=== PATIENT | male | born 1965 | race Caucasian/White ===

== ENCOUNTER 2017-08-27 08:57 | Inpatient (IN) | payer OTHER ==
[2017-08-27] MEDS ORDERED: Lorazepam 2 MG/ML VIAL ONE (09:33)
[2017-08-27 11:45] LABS: #Eosinphils 0.1 thou/uL (0.0-0.7); #Lymphocytes 0.8 thou/uL (1.20-3.40); #Monocytes 0.5 thou/uL (0.11-0.59); #Neutrophils 4.9 thou/uL (1.40-6.50); %Basophils 0.7 % (0.0-1.0); %Eosinophils 0.9 % (0.0-10.0); %Lymphocytes 12.1 % (21.0-51.0); %Monocytes 7.7 % (0.0-10.0); %Neutrophils 78.7 % (42.0-75.0); Hypochromia MODERATE=16-30 cells (100X) (0-5/hpf); MDiff Complete? YES; Mean Corpuscular HGB CONC 29.1 g/dL (32.0-36.0); Mean Corpuscular Hemoglobin 18.3 pg (27.0-31.0); Mean Platelet Volume 4.8 fL (7.4-10.4); Microcytosis MODERATE=15-30 cells (100X) (0-5/hpf); Platelet Count 413 thou/uL (130-400); Poikilocytosis SLIGHT = 6-15 cells (100X) (0-5/hpf); Polychromasia SLIGHT = 2-3 cells (100X) (0-2/hpf); RBC Distribution Width 20.4 % (11.5-14.5); Red Blood Cell (RBC) Count 4.37 mill/uL (4.70-6.10); Reflex for Review?? YES; Target Cells MODERATE= 6-15 cells (100X) (0-1/hpf); White Blood Cell (WBC) Count 6.2 thou/uL (4.8-10.8)
[2017-08-27] MEDS ORDERED: Ondansetron ODT 4 MG TAB SL PRN (12:31)
[2017-08-27] MEDS ORDERED: Ondansetron HCl/PF 4 MG/2 ML Vial IVP PRN (12:31)
[2017-08-27] MEDS ORDERED: Potassium Chloride 40 MEQ in Sodium Chloride 0.9% 500 ML IVPB SCH (12:45)
[2017-08-27] MEDS ORDERED: Diazepam 5 MG TAB PO SCH (12:45)
[2017-08-27] MEDS ORDERED: Thiamine HCl 200 MG/2 ML VIAL IM SCH (12:45)
[2017-08-27 13:07] VITALS: BMI 23.6
[2017-08-27] MEDS: Sodium Chloride 0.9% 1,000 ML IV SCH ×2 (13:30→21:44)
[2017-08-27 13:40] LABS: Magnesium 1.6 mg/dL (1.6-2.6)
[2017-08-27 13:57] LABS: Ferritin 30.29 ng/mL (22-322)
[2017-08-27 13:59] LABS: HBCM Index 0.16 S/CO (0-0.79); HBSAg Index 0.15 S/CO (0-0.99); Hep A IgM AB Non-Reactive (NonReactive); Hep A IgM S/CO 0.16 S/CO (0-0.79); Hep B Surf Ag Non-Reactive S/CO (NonReactive); Hep C IgG Ab Non-Reactive (NonReactive); Hep C Index 0.12 S/CO (0-0.79); Hepatitis B Core IGM Abs Non-Reactive (NonReactive)
[2017-08-27 14:00] LABS: HIV (1/2) Antibody/Antigen Non-Reactive (NonReactive); HIV 1/2 INDEX 0.19 S/CO (<1.00)
[2017-08-27 14:12] LABS: Folate (Folic Acid) 17.3 ng/mL (7.0-31.4)
--- NOTE | 2017-08-27 14:58 | ULT ---
RIGHT UPPER QUADRANT ULTRASOUND: History: Right upper quadrant pain. FINDINGS: Gallbladder is unremarkable without focal stones. Common duct is 0.4 cm. Liver is diffusely thickened without focal mass or intrahepatic biliary dilatation. No free fluid is apparent. IMPRESSION: 1. No evidence of gallstones or biliary obstruction. 2. Hepatosteatosis. POS: [facility]
[2017-08-27] MEDS: Nicotine 14 MG PATCH TD SCH (15:35)
[2017-08-27] MEDS: Diazepam 5 MG TAB PO PRN ×3 (16:26→23:26)
--- NOTE | 2017-08-27 17:14 | CON ---
DATE OF CONSULTATION: 08/27/2017 Mr. Pham is a 52-year-old male. He used to drink several large glass of [place] a night. He changed to beer and was drinking 12 beers a day. He quit drinking on Monday. He was sent over for apparently melena from [facility]. He reported 4 days of black stool. He tells me the thing that is bothering him the most is he has been hallucinating for the last couple of days. He has never been hospitalized here before. PAST MEDICAL HISTORY: Remarkable for reflux disease, shoulder surgery, and appendectomy. SOCIAL HISTORY: Twelve beers a day up until Monday. He is a nonsmoker. He does not use drugs. ALLERGIES: He has no drug allergies. FAMILY HISTORY: Negative for lung disease at an early age. REVIEW OF SYSTEMS: 10 point system reviewed otherwise completely negative. PHYSICAL EXAMINATION: VITAL SIGNS: He is afebrile, heart rate is 97, respiratory rate is 23. Oximetry is 96 on room air, blood pressure 163/79, earlier 163/114. HEENT: Pupils are equal. Sclerae is anicteric. NECK: Supple, no lymphadenopathy. LUNGS: Clear. HEART: Regular rhythm. S1 and S2 are normal. ABDOMEN: Soft and nontender. EXTREMITIES: Without asymmetry. LABORATORY DATA: White count 6.2, hemoglobin 8.0, MCV is 413. Sodium 140, potassium 3.3, chloride 104, bicarbonate 24, BUN 24, creatinine 1.02, iron 16, TIBC is 438, AST is 113, ALT is 121, lipase 42. Urinalysis is just remarkable for trace ketones. Drug screen was negative. Hepatitis panel is negative. IMPRESSION: 1. Alcohol withdrawal induced encephalopathy. 2. History of extremely heavy [place] intake and then heavy beer intake after that. I have explained to him that AA is in necessity moving forward. He wanted to say that his was going to help him get through this, but I have explained to both her and him that going to some sort of support group is likely be more successful than depending on his to keep him from drinking. I suspect he has fatty liver and may have some early cirrhosis. He has documented melena while he is here. Gastroenterology needs to be involved. He obviously has severe iron deficiency within him. Mean corpuscular volume is 63. I would be betting that he also has coexistent thalassemia. He will remain in the critical care unit for now until he is stabilized. This is a 50-minute consult with at least 50% of the time spent on the unit coordinating care. ISAI
[2017-08-27] MEDS: Pantoprazole 40 MG VIAL IVP SCH (20:11)
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
[2017-08-28] MEDS ORDERED: Lorazepam 2 MG/ML VIAL SLOW IVP PRN (00:16)
[2017-08-28] MEDS: Lorazepam 2 MG/ML VIAL SLOW IVP PRN ×6 (02:09→17:46)
[2017-08-28] MEDS ORDERED: chlordiazePOXIDE HCl 25 MG CAP PO PRN ×2 (03:12→03:22)
[2017-08-28] MEDS ORDERED: Lorazepam 2 MG/ML VIAL SLOW IVP SCH (03:15)
[2017-08-28] MEDS ORDERED: Diazepam 5 MG TAB PO PRN (04:00)
[2017-08-28] MEDS: Sodium Chloride 0.9% 1,000 ML IV SCH ×3 (06:36→20:53)
--- NOTE | 2017-08-28 07:01 | PDOC.FM ---
- Subjective Subjective: Pt w/ increased agitation and confusion/hallucinations at approx 0130 this AM requiring PRN ativan administration. Pt doing well per nursing staff since episode. Has received total of 10 mg ativan overnight. Tolerating PO, no melanotic stools or episodes of hematemesis. Some agitation this AM. VSS w/ mild tachycardia. 6 days since last drink, day 3 of sxs. - Objective MAR Reviewed: Yes Vital Signs & Weight: Vital Signs (12 hours) Temp Pulse Resp Pulse Ox 08/28/17 04:00 97.6 F 08/27/17 20:00 97.5 F L 92 22 H 99 Weight Weight 76.2 kg Most Recent Monitor Data Heart Rate from ECG 90 NIBP 138/93 NIBP BP-Mean 110 Respiration from ECG 21 SpO2 91 I&O: 08/26/17 08/27/17 08/28/17 06:59 06:59 06:59 Intake Total 3781 Output Total 2675 Balance 1106 Result Diagrams: 08/27/17 20:25 08/28/17 06:47 <Mukesh Soares - Last Filed: 08/28/17 07:33> - Objective Vital Signs & Weight: Vital Signs (12 hours) Temp Pulse Resp Pulse Ox 08/28/17 08:00 98.5 F 110 H 18 100 08/28/17 07:00 98.5 F 08/28/17 04:00 97.6 F Weight Weight 76.2 kg Most Recent Monitor Data Heart Rate from ECG 84 NIBP 129/84 NIBP BP-Mean 105 Respiration from ECG 22 SpO2 97 I&O: 08/27/17 08/28/17 08/29/17 06:59 06:59 06:59 Intake Total 3781 Output Total 2675 875 Balance 1106 -875 Result Diagrams: 08/28/17 06:47 08/28/17 06:47 <Sarbjit Cruz - Last Filed: 08/28/17 11:38> Phys Exam - Physical Examination Agitated this AM, mumbling, confusion HEENT: PERRLA, moist MMs Respiratory: clear to auscultation bilateral Cardiovascular: no significant murmur tachycardic Gastrointestinal: soft, non-tender, no distention, positive bowel sounds Musculoskeletal: pulses present Neurological: moves all 4 limbs Deviation from normal: agitation, in soft restraints, confused <Mukesh Soares - Last Filed: 08/28/17 07:33> Dx/Plan (1) Alcohol withdrawal delirium Code(s): F10.231 - ALCOHOL DEPENDENCE WITH WITHDRAWAL DELIRIUM Status: Acute Plan: 6 days since last drink 3 days of withdrawal sxs - Will continue w/ scheduled librium (no evidence of advanced cirrhosis on imaging or alcoholic hepatitis which would be contraindications to this medication) and PRN ativan for pt's psychomotor agitation - Requiring 10 mg ativan overnight and Agitation again this AM receiving PRN librium 50 mg. Pending pt's response, will increase scheduled librium from 10 mg TID to either 25 mg or 50 mg TID if pt will agree to take PO meds. - Per nursing staff, pt has been refusing PO medications. Cont. w/ short acting IV ativan if pt continues to refuse - Cont. supplementation w/ B1 and B9 - Cont. to closely monitor in the ICU until sxs stabilize (2) Iron deficiency anemia Code(s): D50.9 - IRON DEFICIENCY ANEMIA, UNSPECIFIED Status: Acute Plan: Pt w/ microcytic anemia w/ low iron (16) and low-normal ferritin (30) Negative FOBT and no episodes of melena, hematochezia, or hematemeiss since admission Hgb stable at 8.0 Pt has been refusing PO medication and likely has malabsorption in the setting of significant and prolonged EtOH use Will plan for iron transfusion GI consult today for eval of possible EGD in the setting of melena and hematemesis (3) GERD (gastroesophageal reflux disease) Code(s): K21.9 - GASTRO-ESOPHAGEAL REFLUX DISEASE WITHOUT ESOPHAGITIS Status: Acute Plan: Pt w/ hx of GERD and w/ alarm sxs w/ microcytic anemia and endorsed hx of hematemesis and melena GI consult to eval for EGD Cont. w/ IV protonix <Mukesh Soares - Last Filed: 08/28/17 07:33>
[2017-08-28 07:24] LABS: ALT (SGPT) 155 U/L (8-55); AST (SGOT) 144 U/L (5-34); Alkaline Phosphatase 66 U/L (40-150); Anion Gap 11 mmol/L (10-20); BUN (Urea Nitrogen) 8 mg/dL (8.4-25.7); Bilirubin, Total 0.4 mg/dL (0.2-1.2); Calc. Creatinine Clearance 117 mL/min (70-130); Calcium 8.6 mg/dL (7.8-10.44); Carbon Dioxide 24 mmol/L (22-29); Chloride 107 mmol/L (98-107); Estimated GFR-MDRD Greater than 90; Glucose 102 mg/dL (70-105); Potassium 3.5 mmol/L (3.5-5.1); Sodium 138 mmol/L (136-145)
[2017-08-28] MEDS ORDERED: chlordiazePOXIDE HCl 25 MG CAP PO SCH (07:25)
[2017-08-28] MEDS: Pantoprazole 40 MG VIAL IVP SCH ×2 (08:36→20:52)
[2017-08-28 09:16] LABS: #Basophils 0.1 thou/uL (0.0-0.2); #Eosinphils 0.2 thou/uL (0.0-0.7); #Monocytes 0.7 thou/uL (0.11-0.59); #Neutrophils 2.8 thou/uL (1.40-6.50); %Basophils 1.4 % (0.0-1.0); %Eosinophils 4.5 % (0.0-10.0); %Lymphocytes 21.6 % (21.0-51.0); %Monocytes 14.9 % (0.0-10.0); %Neutrophils 57.7 % (42.0-75.0); Hemoglobin 8.3 g/dL (14.0-18.0); Hypochromia MODERATE=16-30 cells (100X) (0-5/hpf); MDiff Complete? YES; Mean Corpuscular HGB CONC 28.4 g/dL (32.0-36.0); Mean Corpuscular Hemoglobin 18.5 pg (27.0-31.0); Mean Platelet Volume 5.6 fL (7.4-10.4); Microcytosis MODERATE=15-30 cells (100X) (0-5/hpf); Platelet Count 401 thou/uL (130-400); RBC Distribution Width 20.6 % (11.5-14.5); Red Blood Cell (RBC) Count 4.49 mill/uL (4.70-6.10); White Blood Cell (WBC) Count 4.8 thou/uL (4.8-10.8)
[2017-08-28] MEDS: Haloperidol Lactate 5 MG/ML VIAL IM PRN (09:46)
[2017-08-28] MEDS: Magnesium Oxide 400 MG TAB PO SCH (09:53)
[2017-08-28] MEDS: Folic Acid 1 MG TAB PO SCH (09:53)
[2017-08-28] MEDS: Multivitamin W/ Minerals 1 TAB PO SCH (09:54)
--- NOTE | 2017-08-28 12:01 | PRG ---
DATE OF SERVICE: 08/28/2017 Carlin Pham required Ativan overnight to keep him from climbing out of bed. He is having obstructiv e apneas this morning. He will wake up and try to climb out of bed if he is stimulated in spite of A tivan. We placed a nasal trumpet in his nose. His obstructive apneas have been eliminated. He has equal br eath sounds. He is in no respiratory distress. PHYSICAL EXAMINATION: VITAL SIGNS: Blood pressure 129/84, heart rate in the 80s. Respiratory rate is in the 20s. ABDOMEN: Abdomen is soft and nontender. IMPRESSION AND PLAN: Encephalopathy secondary to alcohol withdrawal. He will need to remain in the Critical Care Unit at this time.
[2017-08-28] MEDS: Multivitamins, Adult 10 ML, Folic Acid 1 MG, Thiamine HCl 100 MG in Dextrose 5 %-0.45 %... IV SCH (12:05)
[2017-08-28] MEDS: Haloperidol Lactate 5 MG/ML VIAL IM SCH ×4 (13:02→23:55)
[2017-08-28] MEDS: Nicotine 14 MG PATCH TD SCH (15:53)
[2017-08-29] MEDS: Lorazepam 2 MG/ML VIAL SLOW IVP PRN ×6 (00:46→22:45)
[2017-08-29] MEDS: Haloperidol Lactate 5 MG/ML VIAL IM SCH ×6 (03:33→23:55)
[2017-08-29] MEDS: Sodium Chloride 0.9% 1,000 ML IV SCH ×3 (03:38→20:15)
[2017-08-29 04:40] LABS: ALT (SGPT) 170 U/L (8-55); AST (SGOT) 158 U/L (5-34); Albumin 3.8 g/dL (3.5-5.0); Alkaline Phosphatase 67 U/L (40-150); Anion Gap 11 mmol/L (10-20); BUN (Urea Nitrogen) 6 mg/dL (8.4-25.7); Bilirubin, Total 0.5 mg/dL (0.2-1.2); Calc. Creatinine Clearance 132 mL/min (70-130); Calcium 8.9 mg/dL (7.8-10.44); Carbon Dioxide 26 mmol/L (22-29); Chloride 104 mmol/L (98-107); Estimated GFR-MDRD Greater than 90; Globulin 2.5 g/dL (2.4-3.5); Glucose 91 mg/dL (70-105); Potassium 3.2 mmol/L (3.5-5.1); Protein, Total 6.3 g/dL (6.0-8.3); Sodium 138 mmol/L (136-145)
[2017-08-29] MEDS ORDERED: CCU Electrolyte Replacement 1 EACH FS ONE (05:54)
[2017-08-29] MEDS ORDERED: Potassium Chloride 20 MEQ TAB PO PRN (05:59)
[2017-08-29] MEDS ORDERED: Potassium Phosphate 9 MMOL in Sodium Chloride 0.9% 100 ML IVPB PRN (05:59)
[2017-08-29] MEDS ORDERED: CCU ELECTROLYTE REPLACEMENT PROTOCOL FS PRN (05:59)
[2017-08-29] MEDS ORDERED: Potassium Chloride 40 MEQ in Sodium Chloride 0.9% 250 ML 250 ML IVPB PRN (05:59)
[2017-08-29] MEDS ORDERED: Potassium Phosphate 12 MMOL in Sodium Chloride 0.9% 250 ML 250 ML IV PRN (05:59)
[2017-08-29] MEDS ORDERED: Magnesium Oxide 400 MG TAB PO PRN ×2 (05:59)
[2017-08-29] MEDS ORDERED: Magnesium 2 GM/NS 0.9% 100 ML 2 GM in Premix Bag 1 BAG IVPB PRN (05:59)
[2017-08-29] MEDS ORDERED: Potassium Phosphate 15 MMOL in Sodium Chloride 0.9% 250 ML 250 ML IV PRN (05:59)
[2017-08-29] MEDS ORDERED: Potassium Chloride 40 MEQ in Premix Bag 1 BAG IVPB PRN (05:59)
--- NOTE | 2017-08-29 06:50 | PDOC.FM ---
- Subjective Subjective: YARIEL overnight, doing well on scheduled haldol and PRN ativan per nursing staff. VSS, afebrile. - Objective MAR Reviewed: Yes Vital Signs & Weight: Vital Signs (12 hours) Temp Pulse Resp BP Pulse Ox 08/29/17 04:00 98.4 F 130/81 08/29/17 00:00 97.6 F 131/93 H 08/28/17 20:00 98.3 F 119/88 08/28/17 19:31 98.3 F 93 24 H 100 08/28/17 19:00 98.3 F Weight Weight 75.1 kg Most Recent Monitor Data Heart Rate from ECG 90 NIBP 137/91 NIBP BP-Mean 103 Respiration from ECG 18 SpO2 100 I&O: 08/27/17 08/28/17 08/29/17 06:59 06:59 06:59 Intake Total 3781 2844 Output Total 2675 2725 Balance 1106 119 Result Diagrams: 08/28/17 06:47 08/29/17 03:53 <Mukesh Soares - Last Filed: 08/29/17 06:47> - Objective Vital Signs & Weight: Vital Signs (12 hours) Temp Pulse Resp BP BP Pulse Ox 08/31/17 04:00 98.2 F 85 18 132/81 132/81 93 L Weight Weight 73.595 kg Most Recent Monitor Data Heart Rate from ECG 102 NIBP 124/83 NIBP BP-Mean 104 Respiration from ECG 19 SpO2 94 I&O: 08/30/17 08/31/17 09/01/17 06:59 06:59 06:59 Intake Total 4269 1400 Output Total 2715 1420 Balance 1554 -20 Result Diagrams: 08/31/17 05:04 08/31/17 05:04 <Sarbjit Cruz - Last Filed: 08/31/17 08:05> Phys Exam - Physical Examination Constitutional: NAD agitation w/ stimulation HEENT: PERRLA Neck: no nodes Respiratory: no wheezing, clear to auscultation bilateral Cardiovascular: RRR, no significant murmur Gastrointestinal: soft, non-tender Neurological: moves all 4 limbs Deviation from normal: Oriented to person and time. Tremulous and agitated when stimulated Skin: no rash <Mukesh Soares - Last Filed: 08/29/17 06:47> Dx/Plan (1) Alcohol withdrawal delirium Code(s): F10.231 - ALCOHOL DEPENDENCE WITH WITHDRAWAL DELIRIUM Status: Acute Plan: 7 days since last drink 4 days of withdrawal sxs - Will continue w/ ODILIA haldol and PRN ativan as this appears to better control patient's psychomotor agitation - Pt not eating, will consider transitioning fluids to D5 1/2 NS today - Cont. supplementation w/ B1 and B9 - Cont. to closely monitor in the ICU until sxs stabilize - If pt's sxs worsen on current regimen, will likely need to be stepped up to propofol and would subsequently require mechanical ventilation (2) Iron deficiency anemia Code(s): D50.9 - IRON DEFICIENCY ANEMIA, UNSPECIFIED Status: Acute Plan: Pt w/ microcytic anemia w/ low iron (16) and low-normal ferritin (30) Negative FOBT and no episodes of melena, hematochezia, or hematemeiss since admission Hgb stable GI consulted for further eval and possible EGD prior to eventual discharge to r/ o gastric ulcer/varicies Will start PO iron supplementation today (3) GERD (gastroesophageal reflux disease) Code(s): K21.9 - GASTRO-ESOPHAGEAL REFLUX DISEASE WITHOUT ESOPHAGITIS Status: Acute Plan: Pt w/ hx of GERD and w/ alarm sxs w/ microcytic anemia and endorsed hx of hematemesis and melena GI consult to eval for EGD Cont. w/ IV protonix <Mukesh Soares - Last Filed: 08/29/17 06:47> Attending Addendum - Attending Addendum Date/Time: 08/31/17 0804 I personally evaluated the patient and discussed the management with Dr. Soares I agree with the History, Examination, Assessment and Plan documented above with any addition or exceptions noted below. Patient responding to Haldol. <Sarbjit Cruz - Last Filed: 08/31/17 08:05>
[2017-08-29] MEDS: Ferrous Sulfate 325 MG TAB PO SCH ×2 (07:15→16:39)
[2017-08-29] MEDS: Pantoprazole 40 MG VIAL IVP SCH ×2 (08:04→20:14)
[2017-08-29] MEDS: Multivitamin W/ Minerals 1 TAB PO SCH (08:04)
[2017-08-29] MEDS: Magnesium Oxide 400 MG TAB PO SCH (08:04)
[2017-08-29] MEDS: Folic Acid 1 MG TAB PO SCH (08:04)
--- NOTE | 2017-08-29 08:08 | CON ---
DATE OF CONSULTATION: 08/28/2017 REFERRING PHYSICIAN: Dr. Mirella Mathew/Dr. Tyree Cat. REASON FOR CONSULTATION: Anemia with questionable history of melena. HISTORY OF PRESENT ILLNESS: Mr. Carlin Pham is a 52-year-old male with history of chronic alcohol abuse. He drinks as much as 4 beers per day. Apparently, he has bleeding for the last 4 da ys. He was brought to the hospital by the family because of feeling lightheaded and also cramping ov er both lower extremities. He also was having some syncopal episodes and having auditory and visual hallucination. The patient was hospitalized because of the above reasons. Since admission, he devel oped christy DTs and right now he is on under sedation and also under physical restraint. He is very s leepy and drowsy. Most of the history was obtained by reviewing his admitting history and physical b y Dr. Vu. The patient was found to have anemia. However, the anemia is actually microcytic indic ative of chronic blood loss. His MCV was low around 63. Apparently, the patient gives any history o f melena stool and also history of hematemesis couple of weeks ago as per the . Since admission , the patient has had no nausea, vomiting, and there is no history of any melena stools. In fact, he has normal stool. The CBC shows hemoglobin 8.1, hematocrit 30. His MCV is low at 63 indicative of chronic blood loss. No other relevant history. MEDICAL ILLNESSES: 1. Chronic alcohol abuse. 2. Asthma. 3. Chronic acid reflux. SURGERIES: 1. Appendectomy. 2. Bilateral rotator cuff repair. ALLERGIES: None. SOCIAL HISTORY: Patient chews tobacco and alcohol abuse for many years. No history of drug abuse. REVIEW OF SYSTEMS: Unobtainable as he is heavily sedated. PHYSICAL EXAMINATION: GENERAL: Thin built. VITAL SIGNS: Stable. Pulse is around 110, blood pressure is 150/96. NECK: Supple. CARDIOVASCULAR: First and second heart sounds normal. LUNGS: Clear to auscultation. ABDOMEN: Nontender. No organomegaly or masses. EXTREMITIES: No edema. LABORATORY DATA: CBC, hemoglobin 8.1, hematocrit 30, platelet count 393,000. BMP: Sodium 140, pota ssium 3.3, chloride 104, bicarb 24, CO2 is 24, glucose 93, AST, ALT 111 and 120 respectively, alkali ne phosphatase 64, calcium 9.8, protein 7.9, albumin 4.5, bilirubin 0.6, PTT 30.4. CLINICAL IMPRESSION: A 52-year-old male with history of chronic alcohol abuse, hospitalize d with dizziness and also hallucinations. Patient appears to have christy delirium tremens at the pres ent time. There is no bleeding at least from the hospital in the form of melena or hematemesis or he matochezia. The anemia is actually microcytic indicative of chronic blood loss and acute blood loss. RECOMMENDATIONS: 1. Management of DTs, IV fluids, magnesium, folic acid, thiamine, and Ativan. 2. Follow up H&H. 3. We will plan for EGD when he is clinically stable. However, if he starts having christy bleeding m ay have to change the treatment plan and will proceed on an emergent basis. For the time being, I saad valdez recommend follow up H&H and transfuse p.r.n. and symptomatically treat.
[2017-08-29] MEDS: Multivitamins, Adult 10 ML, Folic Acid 1 MG, Thiamine HCl 100 MG in Dextrose 5 %-0.45 %... IV SCH (12:04)
--- NOTE | 2017-08-29 12:52 | PRG ---
DATE OF SERVICE: 08/29/2017 SUBJECTIVE: He was actually more conversant today. OBJECTIVE: VITAL SIGNS: Heart rate is 90. Blood pressure 140/84, respiratory rate 21, oximetry 94. LUNGS: Remarkable for coarse equal breath sounds. HEART: Regular rhythm. S1 and S2 are normal. ABDOMEN: Soft and nontender. EXTREMITIES: Without clubbing, cyanosis, or edema. LABORATORY DATA: Sodium 130, potassium 3.2, chloride 104, bicarbonate 26, BUN 6, creatinine 0.7. Li freddy enzymes as expected, it is still mildly elevated. IMPRESSION: Alcohol withdrawal with encephalopathy associated with that, not is hyper-autonomic at t his time. Other than being confused, he is stable at least at this point in time. Fortunately, he d id not require intubation yesterday. His nasal trumpet is out. We will continue close observation in the Critical Care Unit. Critical care time was 30 minutes.
--- NOTE | 2017-08-29 12:56 | ADD-PRG ---
DATE OF SERVICE: 08/29/2017 This is an addendum to the note of Dr. Jin Soares. SUBJECTIVE: Mr. Pham is currently resting quietly in no distress. OBJECTIVE: VITAL SIGNS: Currently, blood pressure is 150/90, he is afebrile, pulse rate is 90 and regular, resp irations are 20. We are treating him for delirium tremens and he is currently quite sedate. He also has a profound ir on-deficiency anemia and we will be consulting GI for evaluation. In the event, he is currently clin ically stable.
--- NOTE | 2017-08-29 13:38 | PRG ---
DATE OF SERVICE: 08/29/2017 HISTORY OF PRESENT ILLNESS: This is a 52-year-old male with alcohol abuse who presents wit h alcohol withdrawal. The patient is being sedated with Haldol. The patient has had no overt GI ble eding. Blood count is actually stable. No further drop noted. The admitting hemoglobin was 8.0, he matocrit 27.6. Today is the same thing as before. The WBC 4800, hemoglobin 8.3, hematocrit 29.2, MC V 65, indicative of iron deficiency. His chemistry panel shows sodium 138, potassium 3.2, chloride 1 04, bicarb 26, BUN is 6, creatinine 0.70. Liver function tests are elevated, bilirubin 0.5, AST 15 8, ALT 170, alkaline phosphatase 67, vitamin B12 975. PHYSICAL EXAMINATION: VITAL SIGNS: He is afebrile. His pulse 92, blood pressure is 124/100. CARDIOVASCULAR/LUNGS: Within normal limits. ABDOMEN: Soft to palpate. No organomegaly. Bowel sounds positive. IMPRESSION: 1. Alcohol withdrawal, DTs 2. Anemia, microcytic, no evidence of acute gastrointestinal bleeding. PLAN: Once he recovers from the DTs will plan for EGD and colonoscopy prior to discharge. In the [facility] and the [facility], continue supportive care and alcohol withdrawal care.
[2017-08-29] MEDS: Haloperidol Lactate 5 MG/ML VIAL IM PRN (13:50)
[2017-08-29] MEDS: Nicotine 14 MG PATCH TD SCH (16:26)
[2017-08-30] MEDS: Haloperidol 5 MG TAB PO SCH ×2 (04:54→08:53)
[2017-08-30 05:14] LABS: #Basophils 0.1 thou/uL (0.0-0.2); #Eosinphils 0.3 thou/uL (0.0-0.7); #Lymphocytes 0.6 thou/uL (1.20-3.40); #Monocytes 0.6 thou/uL (0.11-0.59); #Neutrophils 4.2 thou/uL (1.40-6.50); %Basophils 0.9 % (0.0-1.0); %Eosinophils 5.4 % (0.0-10.0); %Monocytes 10.3 % (0.0-10.0); %Neutrophils 72.4 % (42.0-75.0); Hemoglobin 7.8 g/dL (14.0-18.0); Mean Corpuscular HGB CONC 28.6 g/dL (32.0-36.0); Mean Corpuscular Hemoglobin 18.7 pg (27.0-31.0); Mean Corpuscular Volume 65.1 fl (80.0-94.0); Mean Platelet Volume 11.3 fL (7.4-10.4); Platelet Count 419 thou/uL (130-400); RBC Distribution Width 20.2 % (11.5-14.5); Red Blood Cell (RBC) Count 4.18 mill/uL (4.70-6.10); White Blood Cell (WBC) Count 5.8 thou/uL (4.8-10.8)
[2017-08-30] MEDS: Sodium Chloride 0.9% 1,000 ML IV SCH (05:23)
[2017-08-30 05:27] LABS: ALT (SGPT) 152 U/L (8-55); AST (SGOT) 131 U/L (5-34); Albumin 3.7 g/dL (3.5-5.0); Alkaline Phosphatase 73 U/L (40-150); Anion Gap 11 mmol/L (10-20); BUN (Urea Nitrogen) 5 mg/dL (8.4-25.7); Bilirubin, Total 0.4 mg/dL (0.2-1.2); Calc. Creatinine Clearance 123 mL/min (70-130); Calcium 9.1 mg/dL (7.8-10.44); Carbon Dioxide 28 mmol/L (22-29); Chloride 105 mmol/L (98-107); Estimated GFR-MDRD Greater than 90; Globulin 2.7 g/dL (2.4-3.5); Glucose 96 mg/dL (70-105); Potassium 3.6 mmol/L (3.5-5.1); Protein, Total 6.4 g/dL (6.0-8.3); Sodium 140 mmol/L (136-145)
[2017-08-30] MEDS: Ferrous Sulfate 325 MG TAB PO SCH ×2 (07:50→16:35)
[2017-08-30] MEDS: Folic Acid 1 MG TAB PO SCH (08:52)
[2017-08-30] MEDS: Magnesium Oxide 400 MG TAB PO SCH (08:53)
[2017-08-30] MEDS: Multivitamin W/ Minerals 1 TAB PO SCH (08:53)
[2017-08-30] MEDS: Pantoprazole 40 MG VIAL IVP SCH (08:53)
--- NOTE | 2017-08-30 08:54 | PDOC.FM ---
- Subjective Subjective: YARIEL overnight, pt out of restraints this AM. Minimal sxs of withdrawal overnight on now ODILIA PO haldol. Required 8 mg PRN ativan in total yesterday w/ 2 mg used overnight. Pt resting comfortably this AM. Answering questions appropriately. VSS, afebrile. - Objective MAR Reviewed: Yes Vital Signs & Weight: Vital Signs (12 hours) Temp Pulse Resp BP Pulse Ox 08/30/17 07:11 98.0 F 80 18 97 08/30/17 04:00 98.0 F 08/30/17 00:00 98.0 F 119/72 08/29/17 21:00 97.8 F Weight Weight 77 kg Most Recent Monitor Data Heart Rate from ECG 80 NIBP 134/87 NIBP BP-Mean 101 Respiration from ECG 17 SpO2 98 I&O: 08/29/17 08/30/17 08/31/17 06:59 06:59 06:59 Intake Total 2844 4269 Output Total 2725 2715 Balance 119 1554 Result Diagrams: 08/30/17 04:25 08/30/17 04:25 Phys Exam - Physical Examination Constitutional: NAD HEENT: PERRLA, moist MMs Respiratory: no wheezing Cardiovascular: RRR, no significant murmur Gastrointestinal: soft, non-tender Musculoskeletal: pulses present Neurological: moves all 4 limbs Psychiatric: normal affect Dx/Plan (1) Alcohol withdrawal delirium Code(s): F10.231 - ALCOHOL DEPENDENCE WITH WITHDRAWAL DELIRIUM Status: Acute Plan: 8 days since last drink 5 days of withdrawal sxs - Will transition to librium taper w/ PRN PO haldol needed for breathrough sxs as he has responded well to this. Will start with 50 mg TID. - Consider transfer to floor if pt remains stable w/ minimal withdrawal sxs - Cont. supplementation w/ B1 and B9 - CM consulted for aid in alcohol cessation programs/information in the community (2) Iron deficiency anemia Code(s): D50.9 - IRON DEFICIENCY ANEMIA, UNSPECIFIED Status: Acute Plan: Pt w/ microcytic anemia w/ low iron (16) and low-normal ferritin (30) Negative FOBT and no episodes of melena, hematochezia, or hematemeiss since admission Hgb stable Pt to have scope performed prior to d/c (3) GERD (gastroesophageal reflux disease) Code(s): K21.9 - GASTRO-ESOPHAGEAL REFLUX DISEASE WITHOUT ESOPHAGITIS Status: Acute Plan: Pt w/ hx of GERD and w/ alarm sxs w/ microcytic anemia and endorsed hx of hematemesis and melena GI consulted w/ plans for scope prior to d/c home
[2017-08-30] MEDS ORDERED: chlordiazePOXIDE HCl 25 MG CAP PO PRN (10:52)
--- NOTE | 2017-08-30 13:35 | ADD-PRG ---
DATE OF SERVICE: 08/30/2017 This is an addendum to the note of Dr. Jin Soares. Mr. Pham is awake and alert this morning. He is extremely pleasant and in no distress. He is rabia wing no evidence of tremulousness, anxiety or agitation. His vital signs are stable. He will be tra nsferred to the regular floor today. We have again emphasized that he seek help with AA for his youth development specialist kurt alcoholism. Clinically, able to transfer to floor.
--- NOTE | 2017-08-30 14:27 | PRG ---
DATE OF SERVICE: 08/30/2017 SUBJECTIVE: The patient has improved dramatically. He is coherent and cooperative today. PHYSICAL EXAMINATION: VITAL SIGNS: He is afebrile, heart rate 87, respiratory rate 16, oximetry is 95% on room air, blood pressure 155/95. LUNGS: Clear. HEART: Regular rhythm. ABDOMEN: Soft. LABORATORY DATA: White count 5.8, hemoglobin 7.8, platelets 119, MCV 65. Sodium 140, potassium 3.6, chloride 105, bicarbonate 28, BUN 5, creatinine 0.7. IMPRESSION: 1. Alcohol withdrawal, stable. 2. 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 3. History of extremely heavy alcohol intake. 4. Elevated liver enzymes secondary to his alcoholism. 5. Protein calorie malnutrition and deconditioning secondary to inactivity and alcoholism. PLAN: Transfer out of the Critical Care Unit. He will need an outpatient workup of his anemia to in clude upper and lower endoscopy at some point. Hopefully he will enroll in in Alcoholics Anonymous a nd participate. I will sign off since he is transferring out of the Critical Care Unit.
[2017-08-30] MEDS: Nicotine 14 MG PATCH TD SCH (16:35)
--- NOTE | 2017-08-30 22:13 | PRG ---
DATE OF SERVICE: 08/30/2017 HOSPITAL VISIT NOTE HISTORY OF PRESENT ILLNESS: This is a 52-year-old male hospitalized with DTs and alcohol w ithdrawal. He was in ICU until today. He came out of ICU today. He is awake, alert, and communicat mary. He says he used to see Dr. Sanchez before and had not seen him in the last 1 year. He had no prior history of any peptic ulcer. No history of GI bleeding in the past. No anemia from befo re. The patient still appears weak. However, he is awake and does communicate to some extent. PHYSICAL EXAMINATION: VITAL SIGNS: Temperature 98 degrees Fahrenheit, pulse is 87, blood pressure 155/95. CARDIOVASCULAR SYSTEM: Lungs within normal limits. ABDOMEN: Soft. No organomegaly. No tenderness. No masses. LABORATORY: From today's CBC; WBC had not much changed, today is 7.8; hematocrit 24.2, MCV 63.1. RECOMMENDATIONS: 1. Follow up hemoglobin and hematocrit. 2. Transfuse p.r.n. 3. When he is stable, we will plan for an EGD and colonoscopy.
[2017-08-31 05:57] LABS: #Eosinphils 0.3 thou/uL (0.0-0.7); #Monocytes 0.6 thou/uL (0.11-0.59); #Neutrophils 2.6 thou/uL (1.40-6.50); %Basophils 0.6 % (0.0-1.0); %Eosinophils 5.9 % (0.0-10.0); %Lymphocytes 22.4 % (21.0-51.0); %Monocytes 13.6 % (0.0-10.0); %Neutrophils 57.4 % (42.0-75.0); Hemoglobin 7.9 g/dL (14.0-18.0); Mean Corpuscular HGB CONC 28.8 g/dL (32.0-36.0); Mean Corpuscular Hemoglobin 18.7 pg (27.0-31.0); Mean Corpuscular Volume 64.8 fl (80.0-94.0); Mean Platelet Volume 5.5 fL (7.4-10.4); Platelet Count 460 thou/uL (130-400); RBC Distribution Width 20.2 % (11.5-14.5); Red Blood Cell (RBC) Count 4.22 mill/uL (4.70-6.10); White Blood Cell (WBC) Count 4.6 thou/uL (4.8-10.8)
[2017-08-31 06:01] LABS: ALT (SGPT) 110 U/L (8-55); AST (SGOT) 74 U/L (5-34); Albumin 3.7 g/dL (3.5-5.0); Alkaline Phosphatase 79 U/L (40-150); Anion Gap 8 mmol/L (10-20); BUN (Urea Nitrogen) 7 mg/dL (8.4-25.7); Bilirubin, Total 0.3 mg/dL (0.2-1.2); Calc. Creatinine Clearance 114 mL/min (70-130); Calcium 9.2 mg/dL (7.8-10.44); Carbon Dioxide 32 mmol/L (22-29); Chloride 107 mmol/L (98-107); Estimated GFR-MDRD Greater than 90; Globulin 2.8 g/dL (2.4-3.5); Glucose 99 mg/dL (70-105); Potassium 3.3 mmol/L (3.5-5.1); Protein, Total 6.5 g/dL (6.0-8.3); Sodium 144 mmol/L (136-145)
--- NOTE | 2017-08-31 08:29 | PDOC.FM ---
- Subjective Subjective: YARIEL overnight, tolerating PO, denies any continued withdrawal sxs. Did not require any PRN librium overnight. No new complaints this AM. Pt states he will be planning to get a private counselor upon discharge to aid him in his continued EtOH cessation. - Objective MAR Reviewed: Yes Vital Signs & Weight: Vital Signs (12 hours) Temp Pulse Resp BP BP Pulse Ox 08/31/17 04:00 98.2 F 85 18 132/81 132/81 93 L Weight Weight 73.595 kg Most Recent Monitor Data Heart Rate from ECG 102 NIBP 124/83 NIBP BP-Mean 104 Respiration from ECG 19 SpO2 94 I&O: 08/30/17 08/31/17 09/01/17 06:59 06:59 06:59 Intake Total 4269 1400 Output Total 2715 1420 Balance 1554 -20 Result Diagrams: 08/31/17 05:04 08/31/17 05:04 <Mukesh Soares - Last Filed: 08/31/17 08:27> - Objective Vital Signs & Weight: Vital Signs (12 hours) Temp Pulse Resp BP BP Pulse Ox 08/31/17 08:00 98.4 F 109 H 18 144/79 H 144/79 H 93 L 08/31/17 04:00 98.2 F 85 18 132/81 132/81 93 L Weight Weight 73.595 kg Most Recent Monitor Data Heart Rate from ECG 102 NIBP 124/83 NIBP BP-Mean 104 Respiration from ECG 19 SpO2 94 I&O: 08/30/17 08/31/17 09/01/17 06:59 06:59 06:59 Intake Total 4269 1400 Output Total 2715 1420 Balance 1554 -20 Result Diagrams: 08/31/17 05:04 08/31/17 05:04 <Sarbjit Cruz - Last Filed: 08/31/17 11:20> Phys Exam - Physical Examination Constitutional: NAD HEENT: PERRLA, moist MMs Neck: no nodes, no JVD Respiratory: no wheezing, clear to auscultation bilateral Cardiovascular: RRR Gastrointestinal: soft, non-tender Musculoskeletal: no edema, pulses present Psychiatric: normal affect, A&O x 3 <Mukesh Soares - Last Filed: 08/31/17 08:27> Dx/Plan (1) Alcohol withdrawal delirium Code(s): F10.231 - ALCOHOL DEPENDENCE WITH WITHDRAWAL DELIRIUM Status: Resolved Plan: 9 days since last drink - Cont. w/ PRN librium for any withdrawal sxs. Has not required any since yesterday AM. - CM consulted for EtOH cessation information/resources - Cont. supplementation w/ B1 and B9 (2) Iron deficiency anemia Code(s): D50.9 - IRON DEFICIENCY ANEMIA, UNSPECIFIED Status: Acute Plan: Pt w/ microcytic anemia w/ low iron (16) and low-normal ferritin (30) Negative FOBT and no episodes of melena, hematochezia, or hematemeiss since admission Hgb stable Pt to have scope performed prior to d/c (3) GERD (gastroesophageal reflux disease) Code(s): K21.9 - GASTRO-ESOPHAGEAL REFLUX DISEASE WITHOUT ESOPHAGITIS Status: Acute Plan: Pt w/ hx of GERD and w/ alarm sxs w/ microcytic anemia and endorsed hx of hematemesis and melena GI consulted w/ plans for scope prior to d/c home <Mukesh Soares - Last Filed: 08/31/17 08:27> Attending Addendum - Attending Addendum Date/Time: 08/31/17 1119 I personally evaluated the patient and discussed the management with Dr. Soares I agree with the History, Examination, Assessment and Plan documented above with any addition or exceptions noted below. Patient for GI evaluation of Anemia, candid discussion with Patient and spouse regard Alcohol rehab avoiding enabling behavior and outpatient follow up counseling. <Sarbjit Cruz - Last Filed: 08/31/17 11:20>
[2017-08-31] MEDS ORDERED: Potassium Chloride 20 MEQ TAB PO SCH (08:30)
[2017-08-31] MEDS ORDERED: Amlodipine 5 MG TAB PO SCH (09:00)
[2017-08-31] MEDS: Multivitamin W/ Minerals 1 TAB PO SCH (09:45)
[2017-08-31] MEDS: Ferrous Sulfate 325 MG TAB PO SCH ×2 (09:45→17:42)
[2017-08-31] MEDS: Folic Acid 1 MG TAB PO SCH (09:45)
[2017-08-31] MEDS ORDERED: GoLYTELY 4,000 ml Bottle PO SCH (17:00)
[2017-08-31] MEDS: Nicotine 14 MG PATCH TD SCH (17:42)
[2017-08-31] MEDS: Docusate 100 MG CAP PO SCH (19:50)
[2017-09-01 05:26] LABS: ALT (SGPT) 100 U/L (8-55); AST (SGOT) 73 U/L (5-34); Albumin 3.8 g/dL (3.5-5.0); Alkaline Phosphatase 83 U/L (40-150); Anion Gap 9 mmol/L (10-20); BUN (Urea Nitrogen) 10 mg/dL (8.4-25.7); Bilirubin, Total 0.4 mg/dL (0.2-1.2); Calc. Creatinine Clearance 111 mL/min (70-130); Calcium 9.4 mg/dL (7.8-10.44); Carbon Dioxide 32 mmol/L (22-29); Chloride 104 mmol/L (98-107); Estimated GFR-MDRD Greater than 90; Globulin 2.9 g/dL (2.4-3.5); Glucose 90 mg/dL (70-105); Potassium 3.3 mmol/L (3.5-5.1); Protein, Total 6.7 g/dL (6.0-8.3); Sodium 142 mmol/L (136-145)
[2017-09-01 05:27] LABS: #Basophils 0.1 thou/uL (0.0-0.2); #Eosinphils 0.3 thou/uL (0.0-0.7); #Lymphocytes 1.3 thou/uL (1.20-3.40); #Monocytes 0.7 thou/uL (0.11-0.59); #Neutrophils 2.7 thou/uL (1.40-6.50); %Basophils 1.8 % (0.0-1.0); %Eosinophils 5.8 % (0.0-10.0); %Lymphocytes 25.6 % (21.0-51.0); %Monocytes 13.5 % (0.0-10.0); %Neutrophils 53.3 % (42.0-75.0); Mean Corpuscular HGB CONC 28.6 g/dL (32.0-36.0); Mean Corpuscular Hemoglobin 18.5 pg (27.0-31.0); Mean Corpuscular Volume 64.6 fl (80.0-94.0); Mean Platelet Volume 5.3 fL (7.4-10.4); Platelet Count 481 thou/uL (130-400); Red Blood Cell (RBC) Count 4.33 mill/uL (4.70-6.10)
[2017-09-01] MEDS ORDERED: Iopamidol 370 76% 50 ML VIAL FS ONE (07:04)
[2017-09-01] MEDS ORDERED: ISOVUE-370 76%-LOCM 1 ML ONE (07:04)
--- NOTE | 2017-09-01 09:26 | PDOC.FM ---
- Subjective Subjective: YARIEL overnight, VSS, afebrile. Seen by case management and given community resources for both private inpatient/outpatient alcohol rehab and free resources. No PRN librium use overnight. Going for EGD/colonscopy this AM - Objective MAR Reviewed: Yes Vital Signs & Weight: Vital Signs (12 hours) Temp Pulse Resp BP BP BP Pulse Ox 09/01/17 07:52 98.2 F 79 16 96 09/01/17 07:35 98.2 F 79 16 143/87 H 96 09/01/17 04:00 98.5 F 83 16 130/85 130/85 95 09/01/17 00:00 98.4 F 84 16 144/90 H 144/90 H 95 Weight Weight 74 kg Most Recent Monitor Data Heart Rate from ECG 102 NIBP 124/83 NIBP BP-Mean 104 Respiration from ECG 19 SpO2 94 I&O: 08/31/17 09/01/17 09/02/17 06:59 06:59 06:59 Intake Total 1400 2220 Output Total 1420 Balance -20 2220 Result Diagrams: 09/01/17 04:27 09/01/17 04:27 <Mukesh Soares K - Last Filed: 09/01/17 09:24> - Objective Vital Signs & Weight: Vital Signs (12 hours) Temp Pulse Resp BP BP BP BP 09/01/17 10:50 98.6 F 79 14 155/110 H 09/01/17 07:52 98.2 F 79 16 09/01/17 07:35 98.2 F 79 16 143/87 H 09/01/17 04:00 98.5 F 83 16 130/85 130/85 09/01/17 00:00 98.4 F 84 16 144/90 H 144/90 H Pulse Ox 09/01/17 10:50 96 09/01/17 07:52 96 09/01/17 07:35 96 09/01/17 04:00 95 09/01/17 00:00 95 Weight Weight 74 kg Most Recent Monitor Data Heart Rate from ECG 102 NIBP 124/83 NIBP BP-Mean 104 Respiration from ECG 19 SpO2 94 I&O: 08/31/17 09/01/17 09/02/17 06:59 06:59 06:59 Intake Total 1400 2220 Output Total 1420 Balance -20 2220 Result Diagrams: 09/01/17 04:27 09/01/17 04:27 <Sarbjit Cruz - Last Filed: 09/01/17 11:55> Phys Exam - Physical Examination Constitutional: NAD HEENT: PERRLA Respiratory: no wheezing, clear to auscultation bilateral Cardiovascular: RRR, no significant murmur Gastrointestinal: soft, non-tender Musculoskeletal: no edema, pulses present Neurological: moves all 4 limbs Psychiatric: normal affect, A&O x 3 Skin: cap refill <2 seconds <Mukesh Soares - Last Filed: 09/01/17 09:24> Dx/Plan (1) Alcohol withdrawal delirium Code(s): F10.231 - ALCOHOL DEPENDENCE WITH WITHDRAWAL DELIRIUM Status: Resolved Plan: Resolved, resources for rehab given to patient (2) Iron deficiency anemia Code(s): D50.9 - IRON DEFICIENCY ANEMIA, UNSPECIFIED Status: Acute Plan: Pt w/ microcytic anemia w/ low iron (16) and low-normal ferritin (30) Negative FOBT and no episodes of melena, hematochezia, or hematemeiss since admission Hgb stable EGD and colonscopy this AM Likely d/c one recovered if no significant finding found on scopes Also likely w/ some underlying thalasemia w/ MCV in the 60's. Work-up outpatient w/ PCP (3) GERD (gastroesophageal reflux disease) Code(s): K21.9 - GASTRO-ESOPHAGEAL REFLUX DISEASE WITHOUT ESOPHAGITIS Status: Acute Plan: Pt w/ hx of GERD and w/ alarm sxs w/ microcytic anemia and endorsed hx of hematemesis and melena EGD today and likely d/c home after <Mukesh Soares - Last Filed: 09/01/17 09:24> Attending Addendum - Attending Addendum Date/Time: 09/01/17 1153 I personally evaluated the patient and discussed the management with Dr. Soares I agree with the History, Examination, Assessment and Plan documented above with any addition or exceptions noted below.Patient stble Endoscopy studies negative for source acute bleeding will proceed with GI rec for CT Abdomen and pelvis and if wnl anticipate discharge. Patient aware of alcohol rehab resources. <Sarbjit Cruz - Last Filed: 09/01/17 11:55>
[2017-09-01] MEDS ORDERED: Fentanyl 100 MCG/2 ML VIAL ONE (09:29)
[2017-09-01] MEDS: Ferrous Sulfate 325 MG TAB PO SCH (11:09)
[2017-09-01] MEDS: Docusate 100 MG CAP PO SCH (12:58)
[2017-09-01] MEDS: Folic Acid 1 MG TAB PO SCH (13:35)
[2017-09-01] MEDS: Multivitamin W/ Minerals 1 TAB PO SCH (13:35)
--- NOTE | 2017-09-01 14:17 | CT ---
CT ABDOMEN AND PELVIS WITH ORAL AND IV CONTRAST: Date: 09/01/17 HISTORY: Anemia, melena. Normal colonoscopy and EGD. Surgeries include previous appendectomy. FINDINGS: There are tiny pleural effusions. A moderate sized hiatal hernia is present. Liver demonstrates diffu sely decreased attenuation compared to the spleen consistent with fatty infiltration. The spleen, woodruff creas, adrenal glands, and kidneys are normal. No free air, free fluid, or lymphadenopathy seen in the abdomen or pelvis. The small bowel loops are not abnormally dilated. No pericolonic inflammatory changes are seen. No aneurysmal dilatation of the abdominal aorta is seen. There are degenerative changes in the spine. There are small, fat-containin g inguinal hernia. IMPRESSION: 1. Hiatal hernia. 2. Fatty infiltration of the liver. 3. Tiny pleural effusions. POS: CHRISTINE
[2017-09-01] MEDS ORDERED: Lidocaine 1% PF 5 ML VIAL ONE (15:18)
[2017-09-01] MEDS ORDERED: PROPOFOL 200 MG/20 ML VIAL ONE (15:18)
[2017-09-01 17:54] VITALS: BP 153/97; TEMP 98.9
--- NOTE | 2017-09-01 20:22 | OP ---
DATE OF SURGERY: 09/01/2017 OPERATIVE PROCEDURE: Colonoscopy. PREOPERATIVE DIAGNOSIS: A 52-year-old male with severe microcytic anemia, history of passi ng a tarry stool. The patient is undergoing colonoscopy. POSTOPERATIVE DIAGNOSIS: Normal colonoscopy except for small hemorrhoids. PROCEDURE IN DETAIL: The patient was placed on his left lateral position and was given sedation by A nesthesia Department. A rectal exam was done before the scope was advanced into the rectum. No lesi ons felt on rectal exam. A Pentax video colonoscope was introduced into the rectum and advanced all the way up to the cecum. The patient had some retained fecal material and also the colon was filled up with dark black thick liquid. Apparently, the patient has been taking iron supplement and that is recently the stools look very dark. Water was used to irrigate and wash out and suctioned out. The appendiceal orifice, ileocecal valve, and cecum, no pathology seen. The mucosa appeared normal thro ughout the colon with normal vascular pattern. Withdrawal of scope in the cecum, ascending colon and hepatic flexure, no pathology seen. The transverse colon, splenic flexure, descending colon, and si gmoid colon, no pathology seen. Rectum showed small hemorrhoids.
--- NOTE | 2017-09-01 23:33 | OP ---
DATE OF SURGERY: 09/01/2017 OPERATIVE PROCEDURE: Esophagogastroduodenoscopy with biopsies. PREOPERATIVE DIAGNOSIS: A 52-year-old male with chronic alcohol abuse , who presented with anemia, which is microcytic. Also, history of vomiting of coffee ground material and having melena. The patient is undergoing esophagogastroduodenoscopy. POSTOPERATIVE DIAGNOSES: 1. No esophageal varices seen and no gastric varices seen. 2. Normal stomach and duodenum. Random biopsies were obtained from the descending duodenum to rule out celiac disease. PROCEDURE NOTE: The patient was placed on his left lateral position and was given sedation by Anesthesia Department. A Pentax video gastroscope under direct vision was passed down the oropharynx through the gastroesophageal junction, into the stomach and subsequently into the descending duodenum. The esophageal mucosa appears normal. I did not see any evidence of any bleeding. The GE junction, no pathology seen. The fundus does not show gastric varices. The gastric body, gastric antrum, no pathology seen. The duodenal bulb and descending duodenum, no pathology seen. Four quadrant biopsies were obtained from the descending duodenum to rule out celiac disease. The stomach was decompressed and the scope removed. RECOMMENDATIONS: 1. Obtain CAT scan of the abdomen. 2. Consider discharge home on iron supplement and the patient will come back to see me in the next couple of weeks. ADAMD
--- NOTE | 2017-09-02 17:19 | DIS-2 ---
DATE OF ADMISSION: 08/27/2017 DATE OF DISCHARGE: 09/01/2017 ADMITTING ATTENDING: Dr. Cat. DISCHARGE ATTENDING: Dr. Cruz RESIDENT: Dr. Mukesh Soares. CONSULTATIONS: 1. Pulmonology Critical Care, Dr. Jaime. 2. GI, Dr. Rahman. PROCEDURES: 1. EGD, colonoscopy with negative findings for any ulceration or bleed, duodenal biopsies pending at the time of this dictation, looking for possible celiac disease. PRIMARY DIAGNOSES: 1. Delirium tremens. 2. Microcytic anemia. 3. Hepatitis steatosis. 4. Obstructive Sleep Apnea SECONDARY DIAGNOSIS: None. DISCHARGE MEDICATIONS: 1. Colace 100 mg p.o. b.i.d. 2. Feosol 325 mg p.o. b.i.d. with meals. 3. Multivitamin with minerals 1 tab p.o. daily. 4. Albuterol sulfate 1 puff p.r.n. for difficulty breathing. DISCONTINUED MEDICATIONS: None. HISTORY OF PRESENT ILLNESS: The patient is a 52-year-old male with past medical history of alcoholism, initially drinking approximately 1 large bottle of [place] every 3 days, recently transitioned over drinking a 12-pack of beer daily, in efforts to cut back on his alcohol intake. The patient reportedly went cold turkey on his alcohol intake 5 days prior to admission. The patient stated he had been experiencing tremulousness, lightheadedness and cramping in the lower extremities, prompting initial visit to the ER. He also endorsed auditory and visual hallucinations. The patient denied any prior history of delirium tremens. The patient was found to be tremulous, confused and showing sinus psychomotor agitation. He subsequently admitted to the ICU for further monitoring and started on ASE protocol. The patient was continued tremulousness on numerous p.r.n. Ativan administration as well as scheduled Librium. The patient likely with some sleep apnea as well, which was witnessed by both myself and Critical Care Pulmonology with intermittent episodes of apnea dropping the saturation into the low 70s before rebounding. Secondary to concerns for possible over sedation with benzodiazepines after discussion with Critical Pulmonology, Dr. Jaime, it was decided that the patient would be transitioned over to Haldol administration with p.r.n. Ativan as needed. The patient did extremely well after the switch and required minimal benzodiazepine usage. The patient's alcohol withdrawal symptoms resolved. On hospital day 4, he was transitioned to the floor. At this time the Haldol was stopped. The patient was placed on p.r.n. benzos administration with Librium. The patient did not require any further p.r.n. benzos for agitation and withdrawal symptoms and his confusion and other symptoms subsequently resolved. The patient and also noted possible episode of hematemesis and melena, which occurred a week prior to presentation to the hospital and 3 episodes of melena the day prior to admission. FOBT obtained in the hospital and was negative and the patient had no further episodes of these symptoms. However, in the setting of alcoholic use and microcytic anemia with an MCV of 63 and concern for possible ulceration. GI was subsequently consulted for EGD and colonoscopy, which was performed and have negative results for any evidence of a nidus of bleeding. Duodenal biopsies were obtained for possible celiac disease, which are pending at the time of this dictation. In the setting of patient's profound microcytic anemia, it is likely that he possibly has some underlying thalassemia which would be recommended to be worked up in the outpatient setting. The patient will start iron supplementation as well as his iron levels were found be to low. With the patient's anemia and clean scopes, GI recommended CT abdomen and pelvis with contrast prior to discharge home. CT abdomen and pelvis without any acute findings, it did show a moderate hiatal hernia, a fatty infiltration of the liver and bilateral tiny pleural effusions. The patient was subsequently discharged home after being given resources for alcohol cessation, resources in the community. The patient states that he plans on getting a private counselor to help him in this area. DISPOSITION: Stable. DISCHARGE INSTRUCTIONS: 1. Location: Home. 2. Follow up with Dr. Sanchez in 5-7 days. 3. Activity: As tolerated. MTDD
== END 2017-09-01 17:53 | disposition home or self-care (01) | DRG 897 ==
LOC: ERS 08:57 → CCU 12:22 → T4-B 08-30 13:04
PROVIDERS: ADMIT Family Medicine; ATTEND Family Medicine
PROC: 0DB98ZX Excision of Duodenum, Via Natural or Artificial Opening Endoscopic, Diagnostic (ICD-10-PCS; principal; 2017-09-01)
PROC: 0DJD8ZZ Inspection of Lower Intestinal Tract, Via Natural or Artificial Opening Endoscopic (ICD-10-PCS; 2017-09-01)
DX: F10.231 Alcohol dependence with withdrawal delirium (principal); K92.0 Hematemesis; E46 Unspecified protein-calorie malnutrition; G31.2 Degeneration of nervous system due to alcohol; K92.1 Melena; D50.9 Iron deficiency anemia, unspecified; E87.6 Hypokalemia; K21.9 Gastro-esophageal reflux disease without esophagitis; R00.0 Tachycardia, unspecified; K64.9 Unspecified hemorrhoids; K76.0 Fatty (change of) liver, not elsewhere classified; G47.33 Obstructive sleep apnea (adult) (pediatric); D56.9 Thalassemia, unspecified; J45.909 Unspecified asthma, uncomplicated; Z68.23 Body mass index [BMI] 23.0-23.9, adult
CPT/HCPCS: 36415; 74177; 76705; 80053; 80074; 82274; 82607; 82728; 82746; 83540; 83550; 83735; 85025; 85060; 86850; 86900; 86901; 87389; 88305; 93005; 93010; 96374; C9113; J1630; J2001; J2060; J2704; J3010; J3411; J3475; J3480; J7042; J7050

== ENCOUNTER 2019-05-02 11:00 | Day surgery (SDC) | payer OTHER ==
[2019-05-01 09:55] VITALS: BMI 20.5
[2019-05-02] MEDS ORDERED: Ketorolac Tromethamine 30 MG/ML VIAL ONE (11:32)
[2019-05-02 11:46] LABS: #Eosinphils 0.2 thou/uL (0.0-0.7); #Lymphocytes 1.7 thou/uL (1.20-3.40); #Monocytes 0.3 thou/uL (0.11-0.59); %Basophils 0.5 % (0.0-1.0); %Eosinophils 3.2 % (0.0-10.0); %Lymphocytes 32.7 % (21.0-51.0); %Monocytes 5.9 % (0.0-10.0); %Neutrophils 57.7 % (42.0-75.0); Hemoglobin 15.7 g/dL (14.0-18.0); Mean Corpuscular HGB CONC 33.1 g/dL (32.0-36.0); Mean Corpuscular Hemoglobin 31.5 pg (27.0-31.0); Mean Corpuscular Volume 95.1 fL (78.0-98.0); Mean Platelet Volume 6.7 fL (7.4-10.4); Platelet Count 201 thou/uL (130-400); White Blood Cell (WBC) Count 5.1 thou/uL (4.8-10.8)
[2019-05-02 12:06] LABS: Anion Gap 11 mmol/L (10-20); BUN (Urea Nitrogen) 18 mg/dL (8.4-25.7); Calc. Creatinine Clearance 67 mL/min (70-130); Calcium 9.8 mg/dL (7.8-10.44); Carbon Dioxide 29 mmol/L (22-29); Chloride 103 mmol/L (98-107); Estimated GFR-MDRD 66; Glucose 83 mg/dL (70-105); Potassium 3.8 mmol/L (3.5-5.1); Sodium 139 mmol/L (136-145)
[2019-05-02] MEDS ORDERED: Bupivacaine/Epinephrine 0.25% 30 ML VIAL ONE (12:21)
[2019-05-02] MEDS ORDERED: Fentanyl 250 MCG/5 ML VIAL ONE (12:28)
[2019-05-02] MEDS ORDERED: Morphine 4 MG/ML VIAL ONE (14:29)
[2019-05-02] MEDS ORDERED: HYDROcodone/Acetaminophen 5/325 mg Tablet ONE (16:00)
--- NOTE | 2019-05-03 12:09 | OP ---
DATE OF PROCEDURE: 05/02/2019 PREOPERATIVE DIAGNOSIS: Right inguinal hernia. POSTOPERATIVE DIAGNOSIS: Right inguinal hernia, indirect. OPERATION PERFORMED: Robotic repair of indirect right inguinal hernia with a large 3DMax mesh patch. ANESTHESIA: General endotracheal. INDICATIONS: The patient is a 53-year-old white male. He presents with easily visible and palpable right inguinal hernia, is taken to the operative room at this time for repair. DESCRIPTION OF OPERATION: Informed consent was obtained. Patient taken to the operating room where general endotracheal anesthesia was obtained with patient in supine position. Abdomen was prepped with ChloraPrep and draped in sterile fashion. Jarrell catheter was placed. An 11 mm supraumbilical incision was created through which a Veress needle was passed into the peritoneal cavity and pneumoperitoneum was established using carbon dioxide up to pressure of 15 mmHg. An 11 mm trocar port was passed through the same incision. Laparoscopic camera was passed through this port. Under direct vision, I placed 2 additional 8 mm robotic ports at the supraumbilical level on either side of midline. The robot was docked to the ports and to the camera and the operation was continued from the console. The pelvis was inspected. There was no evidence of a left inguinal hernia repair. There was an easily visualized fairly large indirect hernia on the right side. There were adhesions between the bowel and the anterior abdominal wall in the right lower quadrant secondary to prior appendectomy. These adhesions were all filmy and easily mobilized with sharp dissection. Attention was then turned back to the hernia. A transverse incision was created several centimeters superior to the hernia defect through the peritoneum. A preperitoneal dissection was carried inferiorly. On the medial aspect, I dissected the pubic tubercle and Jomar's ligament. In the lateral aspect, I dissected the iliopubic tract. In the midportion of the wound, I carefully dissected the hernia sac away from the cord structures. The peritoneum was widely mobilized off the underlying vas deferens and cord structures. A 3D max mesh patch was obtained and placed within the preperitoneal space. It was secured in place using 2 interrupted sutures of 3-0 Vicryl, one to the pubic tubercle and one to the anterior abdominal wall just lateral to the epigastric vessels. The mesh fit nicely into the preperitoneal pocket. Hemostasis was meticulous. The peritoneum was closed using running suture of 3-0 Stratafix. The fascia at the supraumbilical port site was closed with 0 Vicryl suture using a GraNee needle. All ports and instruments were removed under direct vision. Pneumoperitoneum was carefully evacuated. A 0.25% Marcaine with epinephrine was infiltrated at each port site. Skin edges approximated with 4-0 Monocryl subcuticular suture. Dermabond was placed externally. There were no complications. The patient tolerated the procedure well and was taken to recovery room in stable condition. Job ID: [id number]
== END 2019-05-02 16:20 | disposition home or self-care (01) ==
LOC: SDC 11:00
PROVIDERS: ATTEND Specialist
PROC: 0YU54JZ Supplement Right Inguinal Region with Synthetic Substitute, Percutaneous Endoscopic Approach (ICD-10-PCS; principal; 2019-05-02)
DX: K40.90 Unilateral inguinal hernia, without obstruction or gangrene, not specified as recurrent (principal); K21.9 Gastro-esophageal reflux disease without esophagitis; Z79.899 Other long term (current) drug therapy
CPT/HCPCS: 36415; 80048; 85025; C1781; J0131; J0690; J1885; J2270; J3010